=== PATIENT | female | born 1930 | race African-American/Black ===

== ENCOUNTER 2017-11-14 15:14 | Inpatient (IN) | payer MEDICARE ==
[~2017-11-14] VITALS: Ht 162.6 cm; Wt 77.6 kg
[~2017-11-14 15:14] MED LIST: ASPIR 8181 MG PO; BENAZEPRIL HCL10 MG ORAL; FUROSEMIDE40 MG ORAL; HYDROCHLOROTHIA25 MG ORAL; METOPROLOL SUCC25 MG ORAL; PENTOXIFYLLINE400 MG PO; POTASSIUM99 M3 PO; VALIUM2 MG ORAL; ZYLOPRIM300 MG PO
[2017-11-14] MEDS ORDERED: dilTIAZem HCl 25mg/5ml Inj IV ONE (15:45)
[2017-11-14] MEDS ORDERED: Sodium Chloride 500ML 500 ML IV ONE (15:45)
[2017-11-14 16:01] LABS: BASOPHILS % (AUTO) 1.2 % (0.0-2.0); EOSINOPHILS % (AUTO) 1.4 % (0.0-3.0); HEMATOCRIT 49.7 % (37.0-47.0); HEMOGLOBIN 15.2 G/DL (12.0-16.0); LYMPHOCYTES % (AUTO) 34.2 % (20.0-45.0); MEAN CORPUSCULAR VOLUME 86 FL (80-99); MONOCYTES % (AUTO) 7.6 % (1.0-10.0); NEUTROPHILS % (AUTO) 55.6 % (45.0-75.0); PLATELET COUNT 218 K/UL (150-450); RED BLOOD COUNT 5.78 M/UL (4.20-5.40); RED CELL DISTRIBUTION WIDTH 14.8 % (11.6-14.8); WHITE BLOOD COUNT 7.7 K/UL (4.8-10.8)
[2017-11-14 16:07] LABS: INR 1.1 (0.9-1.1)
[2017-11-14 16:09] LABS: ANION GAP 11 mmol/L (5-15); BLOOD UREA NITROGEN 15 mg/dL (7-18); CARBON DIOXIDE 25 MMOL/L (21-32); CHLORIDE 103 MMOL/L (98-107); CREATININE 1.3 MG/DL (0.55-1.30); POTASSIUM 3.4 MMOL/L (3.5-5.1); SODIUM 139 MMOL/L (136-145)
[2017-11-14 16:19] LABS: ALANINE AMINOTRANSFERASE 17 U/L (12-78); ALBUMIN 3.6 G/DL (3.4-5.0); ALBUMIN/GLOBULIN RATIO 0.8 (1.0-2.7); ALKALINE PHOSPHATASE 78 U/L (46-116); ASPARTATE AMINO TRANSFERASE 19 U/L (15-37); BILIRUBIN,TOTAL 0.4 MG/DL (0.2-1.0); CREATINE KINASE 40 U/L (26-308)
[2017-11-14] MEDS ORDERED: Metoprolol 5mg/5ml Inj IVP STA (16:38)
[2017-11-14 16:46] VITALS: BP 103/61
--- NOTE | 2017-11-14 17:11 | Diagnostic Imaging Report ---
EXAM: XR Chest, 1 View CLINICAL HISTORY: CP TECHNIQUE: Frontal view of the chest. COMPARISON: Chest x-ray 11/14/151916 FINDINGS: Lungs: Unremarkable. No consolidation. Pleural space: Unremarkable. No pneumothorax. Heart: Heart size upper limits normal. Mediastinum: Unremarkable. Bones/joints: Degenerative changes of the spine. IMPRESSION: No acute findings.
--- NOTE | 2017-11-14 18:27 | Emergency Room Report ---
History of Present Illness General Chief Complaint: Dizziness Source: Patient Present Illness HPI Patient presents with dizziness for a few days. She feels weak when she stands and that she is about to pass out. She she's never had this problem before. She feels also that her heart is racing. No chest pain. She denies any fevers , chills, nausea, vomiting, diarrhea. She states that she's been able to take her medications as prescribed. She been treated for hypertension. She feels anxious. No headache. No calf pain or edema. No rashes. No NVD, dysuria, joint pain. Allergies: Coded Allergies: ACETAMINOPHEN (Verified Allergy, Mild, 05/13/12) AMINOGLYCOSIDES (Verified Allergy, Mild, 05/13/12) BACITRACIN (Verified Allergy, Mild, 05/13/12) COLISTIN (Verified Allergy, Mild, 05/13/12) DEXAMETHASONE (Verified Allergy, Mild, 05/13/12) GRAMICIDIN D (Verified Allergy, Mild, 05/13/12) HYDROCORTISONE (Verified Allergy, Mild, 05/13/12) MORPHINE (Verified Allergy, Mild, 05/13/12) NEOMYCIN (Verified Allergy, Mild, 05/13/12) POLYMYXIN B (Verified Allergy, Mild, 05/13/12) PREDNISOLONE (Verified Allergy, Mild, 05/13/12) SULFONYLUREAS (Verified Allergy, Mild, 05/13/12) THONZONIUM (Verified Allergy, Mild, 05/13/12) TRIMETHOPRIM (Verified Allergy, Mild, 05/13/12) Patient History Past Medical History: see triage record Past Surgical History: hysterectomy Social History: Denies: smoking, alcohol use Social History Narrative at home Last Menstrual Period: NA Reviewed Nursing Documentation: PMH: Agreed; PSxH: Agreed Nursing Documentation-PMH Past Medical History: No History, Except For Hx Cardiac Problems: Yes Hx Hypertension: Yes Hx Asthma: No - hysterectomy Hx Cancer: No Hx Gastrointestinal Problems: No Hx Neurological Problems: No Review of Systems All Other Systems: negative except mentioned in HPI Physical Exam Vital Signs Date Time Temp Pulse Resp B/P (MAP) Pulse Ox O2 Delivery O2 Flow Rate FiO2 11/14/17 15:19 97.5 171 18 101/68 97 Room Air 97.5 Sp02 EP Interpretation: reviewed, normal General Appearance: well appearing, no apparent distress, GCS 15 Head: normocephalic Eyes: bilateral eye normal inspection, bilateral eye PERRL ENT: moist mucus membranes Neck: supple Respiratory: lungs clear, normal breath sounds Cardiovascular #1: tachycardia, irregularly irregular Cardiovascular #2: 2+ radial (R) Gastrointestinal: normal inspection, normal bowel sounds, non tender, no mass, non-distended Genitourinary: no CVA tenderness Musculoskeletal: back normal, normal range of motion, no calf tenderness, Darnell 's Sign negative Neurologic: alert, oriented x3, grossly normal Psychiatric: anxious Skin: normal inspection, warm/dry Procedures Critical Care Time Critical Care Time Total Critical Care Time: 30 min bedside evaluation and treatment excludes procedures (EKG). Reason for critical care: arrhythmia, NSTEMI, repeated evaluations Possible complications: hypotension, hypertension, NH, shock, arrhythmias, metabolic acidosis, end organ damage, respiratory failure. Interventions: Bolus for hypotension. Repeat evaluations. Treatment for + troponin. Consultation with MDs Course: Patient with a fib and RVR. Order for diltiazem after bolus for hypotension. Repeat EKG after cardiac conversion. Repeat evaluations. Treatment for + troponin with aspirin and metoprolol. Consultation with HMO MD and admitting MD. Consultations: nursing staff, EMS, family, HMO MD, admitting MD Performed by: Dr. Tejeda Tolerated well condition = serious Medical Decision Making Diagnostic Impression: Primary Impression: NSTEMI (non-ST elevated myocardial infarction) Additional Impression: Paroxysmal A-fib ER Course Patient presents with dizziness and atrial fibrillation with rapid ventricular response rate. Differential included includes acute myocardial infarction, electrolyte imbalance, pulmonary embolus, hyperthyroidism amongst others. Patient be evaluated with EKG, chest x-ray and labs. Addition the patient is slightly hypotensive. She'll get a small fluid bolus and then receive diltiazem. Before diltiazem was given the patient converted to normal sinus rhythm. The prior EKG showed some strain. The subsequent EKG is normal the rate of 84 without injury. CBC with elevated H/H and normal WBC. CMP with min hypokalemia. Troponin was minimally elevated. The patient received aspirin and a dose of metoprolol. The patient is improved. Patient felt palpitations but had NSR. Anxiety treated with ativan. Patient needs continued cardiac observation and to see troponins are elevating. She also needs echocardiogram. Discussed with Dr. Vines and decision to not transfer due to cardiac instability. Admit SDU, Dr. Reis. Laboratory Tests Test 11/14/17 15:30 White Blood Count 7.7 K/UL (4.8-10.8) Red Blood Count 5.78 M/UL (4.20-5.40) H Hemoglobin 15.2 G/DL (12.0-16.0) Hematocrit 49.7 % (37.0-47.0) H Mean Corpuscular Volume 86 FL (80-99) Mean Corpuscular Hemoglobin 26.2 PG (27.0-31.0) L Mean Corpuscular Hemoglobin Concent 30.5 G/DL (32.0-36.0) L Red Cell Distribution Width 14.8 % (11.6-14.8) Platelet Count 218 K/UL (150-450) Mean Platelet Volume 11.1 FL (6.5-10.1) H Neutrophils (%) (Auto) 55.6 % (45.0-75.0) Lymphocytes (%) (Auto) 34.2 % (20.0-45.0) Monocytes (%) (Auto) 7.6 % (1.0-10.0) Eosinophils (%) (Auto) 1.4 % (0.0-3.0) Basophils (%) (Auto) 1.2 % (0.0-2.0) Prothrombin Time 11.1 SEC (9.30-11.50) Prothrombin Time INR 1.1 (0.9-1.1) PTT 30 SEC (23-33) Sodium Level 139 MMOL/L (136-145) Potassium Level 3.4 MMOL/L (3.5-5.1) L Chloride Level 103 MMOL/L (98-107) Carbon Dioxide Level 25 MMOL/L (21-32) Anion Gap 11 mmol/L (5-15) Blood Urea Nitrogen 15 mg/dL (7-18) Creatinine 1.3 MG/DL (0.55-1.30) Estimate Glomerular Filtration Rate mL/min (>60) Glucose Level 119 MG/DL (74-106) H Calcium Level 10.0 MG/DL (8.5-10.1) Total Bilirubin 0.4 MG/DL (0.2-1.0) Aspartate Amino Transferase (AST) 19 U/L (15-37) Alanine Aminotransferase (ALT) 17 U/L (12-78) Alkaline Phosphatase 78 U/L (46-116) Total Creatine Kinase 40 U/L (26-308) Troponin I 0.070 ng/mL (0.000-0.056) Pro-B-Type Natriuretic Peptide 220 pg/mL (0-125) H Total Protein 8.0 G/DL (6.4-8.2) Albumin 3.6 G/DL (3.4-5.0) Globulin 4.4 g/dL Albumin/Globulin Ratio 0.8 (1.0-2.7) L EKG Diagnostic Results Rate: tachycardiac Rhythm: other - a fib ST Segments: other Other Impression Repeat EKG NSR, rate 84, normal EKG Rhythm Strip Diag. Results EP Interpretation: yes Rhythm: no PVC's, no ectopy, other - a fib RVR Chest X-Ray Diagnostic Results Chest X-Ray Diagnostic Results : Chest X-Ray Ordered: Yes # of Views/Limited/Complete: 1 View Indication: Other EP Interpretation: Yes Interpretation: no consolidation, no effusion, no pneumothorax Impression: Other Electronically Signed by: Electronically signed by Aaron Tejeda MD Last Vital Signs Date Time Temp Pulse Resp B/P (MAP) Pulse Ox O2 Delivery O2 Flow Rate FiO2 11/15/17 00:00 Room Air 11/15/17 00:00 65 11/15/17 00:00 97.5 18 118/72 (87) 99 97.5 Status: improved Disposition: ADMITTED INPATIENT Condition: Serious Referrals: BYRON MARSH (PCP) Aaron Tejeda M.D. Nov 14, 2017 18:27
[2017-11-14 19:04] LABS: BILIRUBIN, URINE NEGATIVE (NEGATIVE); GLUCOSE, URINE (UA) NEGATIVE (NEGATIVE); KETONES,URINE NEGATIVE (NEGATIVE); LEUKOCYTE ESTERASE ,URINE NEGATIVE (NEGATIVE); NITRITE,URINE NEGATIVE (NEGATIVE); PH,URINE 5 (4.5-8.0); PROTEIN,URINE NEGATIVE (NEGATIVE); UROBILINOGEN,URINE NORMAL MG/DL (0.0-1.0)
[2017-11-14 19:05] LABS: APPEARANCE,URINE CLEAR; COLOR,URINE YELLOW
[2017-11-14] MEDS ORDERED: LORazepam Inj 2mg/ml 1ml IV ONE (20:15)
[2017-11-14 21:00] VITALS: BP 116/79
[2017-11-14] MEDS: Heparin 5000 units/ml inj SUBQ SCH (21:07)
[2017-11-14] MEDS ORDERED: LORazepam 1mg tab ORAL PRN (22:00)
[2017-11-14] MEDS ORDERED: Metoprolol Succinate XL 50mg tab ORAL SCH (22:00)
--- NOTE | 2017-11-14 22:15 | History and Physical Report ---
DATE OF ADMISSION: 11/14/2017 CHIEF COMPLAINT: Hypotension, dizziness, and atrial fibrillation with rapid ventricular response. HISTORY OF PRESENT ILLNESS: The patient is a pleasant female with a history of hypertensive heart disease and gout. She has been having problems with low blood pressure for the last several days. She called her doctor, who recommended that she cut her medications in half and transferred here. She went to [facility] and had her blood pressure checked, it was 60. She repeated it and it was 90. She developed palpitations and continued to feel dizzy, so her family brought her to the emergency room. On evaluation there, the patient's blood pressure was 100/68, but she was in atrial fibrillation with rapid ventricular response. She was given a dose of Cardizem and converted to sinus. She had an elevated troponin and is now admitted for further evaluation and care. She denies any fevers or chills. She has had no chest pain. She believes that her left ankle has been more swollen. PAST MEDICAL HISTORY: As above. PAST SURGICAL HISTORY: Includes hysterectomy. CURRENT MEDICATIONS: Reconciled and reviewed. ALLERGIES: Multiple and include Tylenol, aminoglycosides, colistin, dexamethasone, hydrocortisone, morphine, polymyxin, prednisolone, and sulfonylureas. FAMILY HISTORY: Noncontributory. SOCIAL HISTORY: The patient has a [id number] history of smoking. REVIEW OF SYSTEMS: GENERAL: No fever or chills. Positive dizziness. HEENT: No headaches or visual changes. CARDIOPULMONARY: No chest pain. Positive palpitations. No shortness of breath. GASTROINTESTINAL: No nausea or vomiting. GENITOURINARY: No urgency or frequency. MUSCULOSKELETAL: No joint pain or swelling. NEUROLOGIC: No evidence of seizures. PHYSICAL EXAMINATION: VITAL SIGNS: Temperature 97.5, pulse 90, respirations 18, and blood pressure 124/59. CONSTITUTIONAL: The patient is well developed, in no apparent distress. HEART: Regular rate and rhythm. LUNGS: Clear. ABDOMEN: Soft, nontender, and nondistended. EXTREMITIES: Without clubbing or cyanosis. There is trace edema noted in the left leg. LABORATORY DATA: White count 7, hemoglobin 15, hematocrit 49, and platelets are 218,000. Sodium 139, potassium 3.4, and creatinine was 1.3. Troponin 0.07. Urine was clear. ASSESSMENT: This is a pleasant female admitted with complaints of hypotension likely secondary to medications and mild dehydration. The patient has new onset atrial fibrillation, but is already converted to sinus. She appears mildly dehydrated. PLAN: 1. Monitor on telemetry. 2. Repeat troponin. 3. Antiplatelet therapy with aspirin. 4. Monitor for recurrent atrial fibrillation. 5. Cardiology consultation. 6. We will check an echo and a venous duplex of the legs. 7. Plan of care was discussed at the bedside with the patient. Genaro Reis M.D. DR: RASHID JOB#: [id number] CC:
[2017-11-14] MEDS ORDERED: METOPROLOL SUCC25 MG ORAL (23:53)
[2017-11-14] MEDS ORDERED: POTASSIUM CHLO20 ME2 ORAL (23:55)
[2017-11-15] VITALS: BP 118/72
--- NOTE | 2017-11-15 03:30 | Consultation ---
DATE OF CONSULTATION: 11/14/2017 REASON FOR CONSULTATION: Atrial fibrillation and hypotension. CONSULTING PHYSICIAN: Aaron Leiva M.D. REQUESTING PHYSICIAN: Genaro Reis M.D. HISTORY OF PRESENT ILLNESS: This is an 87-year-old female has a history of hypertension and recently has had decreasing blood pressure readings which she has notified her doctor about and has had her medication regimen decreased slightly over the period of the past few weeks. Today, she felt increasingly weak, dizzy, and lightheaded. Her blood pressure was 90 systolic. She notes that it had been low episodically over the past week, but not ____. She had been putting her head down between her legs when she had these type of symptoms and low blood pressure readings. The patient came to the emergency room where she was noted to have a blood pressure of 100/68 and was in rapid atrial fibrillation. She was a given a dose of Cardizem intravenously and subsequently converted to sinus rhythm. She had abnormal laboratory studies including an elevated troponin level and has been admitted for further management. PAST MEDICAL HISTORY: Hypertension, gout, chronic obstructive pulmonary disease, and prior hysterectomy. She is unaware of any prior history of irregular heartbeats. MEDICATIONS: Reviewed and reconciled. ALLERGIES: Aminoglycosides, colistin, dexamethasone, morphine, sulfonylureas, and acetaminophen. SOCIAL HISTORY: A 50+ pack year smoker. FAMILY HISTORY: Noncontributory. REVIEW OF SYSTEMS: A 10-point review of systems performed. All systems negative other than noted above. PHYSICAL EXAMINATION: VITAL SIGNS: Blood pressure 124/59, pulse 90, respiratory rate 18, and afebrile. GENERAL: Monitor, presently sinus arrhythmia. HEENT: Conjunctiva pink. Sclerae are anicteric. Oropharynx clear. Mucous membranes moist. NECK: Supple. Jugular venous pressure normal. LUNGS: Clear. CARDIAC: Regular rhythm and rate. Normal S1 and S2 with fourth heart sound. ABDOMEN: Soft and nontender. EXTREMITIES: With trace left leg edema. NEUROLOGIC: Nonfocal. LABORATORY DATA: White count 7 and hemoglobin 15. Potassium 3.4 and troponin 0.07. IMPRESSION: 1. Recurring hypotension, likely medication related, aggravated by mild hypovolemia and dehydration. 2. Paroxysmal atrial fibrillation. 3. Hypokalemia. 4. History of hyperuricemia and gout. 5. Acute myocardial ischemia. PLAN: 1. Avoid diuretic therapy. 2. Volume resuscitation. 3. Hold anticoagulation for now. 4. Consider beta-mamie, echocardiogram, and venous duplex study. 5. Antiplatelet therapy. 6. Serial troponin levels. Aaron Leiva M.D. DR: SMITHA JOB#: [id number] CC:
[2017-11-15 04:00] VITALS: BP 115/81
[2017-11-15 06:08] LABS: ALANINE AMINOTRANSFERASE 12 U/L (12-78); ALBUMIN 2.7 G/DL (3.4-5.0); ALBUMIN/GLOBULIN RATIO 0.8 (1.0-2.7); ALKALINE PHOSPHATASE 58 U/L (46-116); ANION GAP 8 mmol/L (5-15); ASPARTATE AMINO TRANSFERASE 16 U/L (15-37); BILIRUBIN,TOTAL 0.4 MG/DL (0.2-1.0); BLOOD UREA NITROGEN 13 mg/dL (7-18); CALCIUM 8.9 MG/DL (8.5-10.1); CARBON DIOXIDE 24 MMOL/L (21-32); CHLORIDE 109 MMOL/L (98-107); CHOLESTEROL 141 MG/DL (< 200); HDL CHOLESTEROL 37 MG/DL (40-60); POTASSIUM 3.8 MMOL/L (3.5-5.1); SODIUM 141 MMOL/L (136-145); TRIGLYCERIDES 116 MG/DL (30-150)
[2017-11-15 08:00] VITALS: BP 135/66
[2017-11-15] MEDS: Aspirin EC 81mg tab ORAL SCH (08:53)
[2017-11-15] MEDS ORDERED: Metoprolol Succinate XL 25mg tab ORAL SCH (09:00)
[2017-11-15] MEDS ORDERED: Benazepril 10mg tab ORAL SCH (09:00)
[2017-11-15] MEDS: Metoprolol Succinate XL 25mg tab ORAL SCH (09:18)
[2017-11-15] MEDS: Heparin 5000 units/ml inj SUBQ SCH ×2 (09:22→21:04)
--- NOTE | 2017-11-15 10:17 | General Progress Note ---
Assessment/Plan Problem List: (1) Hypotension ICD Codes: I95.9 - Hypotension, unspecified SNOMED: 16149089 (2) Dehydration ICD Codes: E86.0 - Dehydration SNOMED: 32786601 (3) Dizziness ICD Codes: R42 - Dizziness and giddiness SNOMED: 318237880, 571019049 (4) NSTEMI (non-ST elevated myocardial infarction) ICD Codes: I21.4 - Non-ST elevation (NSTEMI) myocardial infarction SNOMED: 074878500 (5) Paroxysmal A-fib ICD Codes: I48.0 - Paroxysmal atrial fibrillation SNOMED: 002915934 Status: stable, progressing Assessment/Plan antiplt rx trend troponin b-blockade dc ivf check lipids check echo carotids Subjective ROS Limited/Unobtainable: No Constitutional: Reports: no symptoms HEENT: Reports: no symptoms Cardiovascular: Reports: no symptoms Respiratory: Reports: no symptoms Gastrointestinal/Abdominal: Reports: no symptoms Genitourinary: Reports: no symptoms Neurologic/Psychiatric: Reports: no symptoms Endocrine: Reports: no symptoms Hematologic/Lymphatic: Reports: no symptoms Allergies: Coded Allergies: ACETAMINOPHEN (Verified Allergy, Mild, 05/13/12) AMINOGLYCOSIDES (Verified Allergy, Mild, 05/13/12) BACITRACIN (Verified Allergy, Mild, 05/13/12) COLISTIN (Verified Allergy, Mild, 05/13/12) DEXAMETHASONE (Verified Allergy, Mild, 05/13/12) GRAMICIDIN D (Verified Allergy, Mild, 05/13/12) HYDROCORTISONE (Verified Allergy, Mild, 05/13/12) MORPHINE (Verified Allergy, Mild, 05/13/12) NEOMYCIN (Verified Allergy, Mild, 05/13/12) POLYMYXIN B (Verified Allergy, Mild, 05/13/12) PREDNISOLONE (Verified Allergy, Mild, 05/13/12) SULFONYLUREAS (Verified Allergy, Mild, 05/13/12) THONZONIUM (Verified Allergy, Mild, 05/13/12) TRIMETHOPRIM (Verified Allergy, Mild, 05/13/12) Subjective feels better. no more afib. troponin treding up. cards noted denies dizziness Objective Last 24 Hour Vital Signs Date Time Temp Pulse Resp B/P (MAP) Pulse Ox O2 Delivery O2 Flow Rate FiO2 11/15/17 09:18 72 135/66 11/15/17 08:53 135/66 11/15/17 08:00 97.9 72 20 135/66 (89) 100 97.9 11/15/17 08:00 Room Air 11/15/17 04:00 76 11/15/17 04:00 Room Air 11/15/17 04:00 98.1 78 18 115/81 (92) 99 98.1 11/15/17 00:00 Room Air 11/15/17 00:00 65 11/15/17 00:00 Room Air 11/15/17 00:00 97.5 79 18 118/72 (87) 99 97.5 11/14/17 22:20 72 116/79 11/14/17 21:00 97.7 73 20 116/79 (91) 99 97.7 11/14/17 21:00 Room Air 11/14/17 21:00 74 11/14/17 20:30 97.5 18 124/59 97 Room Air 97.5 11/14/17 18:45 90 124/59 11/14/17 16:46 97.5 18 103/61 97 Room Air 97.5 11/14/17 15:45 88 103/66 11/14/17 15:19 97.5 171 18 101/68 97 Room Air 97.5 Intake and Output 11/14/17 11/15/17 19:00 07:00 Intake Total 0 ml 650 ml Balance 0 ml 650 ml Intake Oral 0 ml IV Total 650 ml # Voids 1 Laboratory Tests 11/14/17 15:30: White Blood Count 7.7, Red Blood Count 5.78H, Hemoglobin 15.2, Hematocrit 49.7H , Mean Corpuscular Volume 86, Mean Corpuscular Hemoglobin 26.2L, Mean Corpuscular Hemoglobin Concent 30.5L, Red Cell Distribution Width 14.8, Platelet Count 218, Mean Platelet Volume 11.1H, Neutrophils (%) (Auto) 55.6, Lymphocytes (%) (Auto) 34.2, Monocytes (%) (Auto) 7.6, Eosinophils (%) (Auto) 1.4, Basophils (%) (Auto) 1.2, Prothrombin Time 11.1, Prothromb Time International Ratio 1.1, Activated Partial Thromboplast Time 30, Sodium Level 139, Potassium Level 3.4L, Chloride Level 103, Carbon Dioxide Level 25, Anion Gap 11, Blood Urea Nitrogen 15, Creatinine 1.3, Estimat Glomerular Filtration Rate , Glucose Level 119H, Calcium Level 10.0, Total Bilirubin 0.4, Aspartate Amino Transf (AST/SGOT) 19, Alanine Aminotransferase (ALT/SGPT) 17, Alkaline Phosphatase 78, Total Creatine Kinase 40, Troponin I 0.070H, Pro-B-Type Natriuretic Peptide 220H, Total Protein 8.0, Albumin 3.6, Globulin 4.4, Albumin/ Globulin Ratio 0.8L 11/14/17 18:55: Urine Color Yellow, Urine Appearance Clear, Urine pH 5, Urine Specific Warner 1.015, Urine Protein Negative, Urine Glucose (UA) Negative, Urine Ketones Negative, Urine Blood Negative, Urine Nitrite Negative, Urine Bilirubin Negative , Urine Urobilinogen Normal, Urine Leukocyte Esterase Negative 11/15/17 03:40: Sodium Level 141, Potassium Level 3.8, Chloride Level 109H, Carbon Dioxide Level 24, Anion Gap 8, Blood Urea Nitrogen 13, Creatinine 1.0, Estimat Glomerular Filtration Rate , Glucose Level 89, Calcium Level 8.9, Total Bilirubin 0.4, Aspartate Amino Transf (AST/SGOT) 16, Alanine Aminotransferase ( ALT/SGPT) 12, Alkaline Phosphatase 58, Troponin I 0.424H, Pro-B-Type Natriuretic Peptide 1069H, Total Protein 6.2L, Albumin 2.7L, Globulin 3.5, Albumin/Globulin Ratio 0.8L, Magnesium Level 1.6L, Triglycerides Level 116, Cholesterol Level 141, LDL Cholesterol 85, HDL Cholesterol 37L, Cholesterol/HDL Ratio 3.8, Thyroid Stimulating Hormone (TSH) 1.484 Height (Feet): 5 Height (Inches): 4.00 Weight (Pounds): 170 General Appearance: WD/WN, alert Neck: supple Cardiovascular: regular rhythm Respiratory/Chest: chest wall non-tender, lungs clear, normal breath sounds Abdomen: normal bowel sounds, non tender, soft, no organomegaly Edema: no edema noted Arm (L), no edema noted Arm (R), no edema noted Leg (L), no edema noted Leg (R), no edema noted Pedal (L), no edema noted Pedal (R), no edema noted Generalized Genaro Reis MD Nov 15, 2017 10:17
[2017-11-15 12:00] VITALS: BP 130/60
--- NOTE | 2017-11-15 13:43 | Cardiology Report ---
APPROVED REPORT EKG Measurement Heart [id number] Normal sinus rhythm Normal ECG
[2017-11-15 20:00] VITALS: BP 148/74
[2017-11-15 23:58] VITALS: BP 129/69
--- NOTE | 2017-11-16 00:45 | Progress Note ---
DATE: 11/15/2017 CARDIOLOGY PROGRESS NOTE SUBJECTIVE: The patient without chest pain or shortness of breath. She notes no more palpitations or dizziness. Her monitored rhythm remains sinus with sinus arrhythmias since admission. OBJECTIVE: VITAL SIGNS: Blood pressure 148/74, pulse 68, respiratory rate 20, afebrile, and room air oxygen saturation is 97%. NECK: Jugular venous pressure normal. LUNGS: Clear. CARDIAC: Regular rhythm and rate. Normal S1 and S2 with a fourth heart sound. ABDOMEN: Soft. EXTREMITIES: No edema. LABORATORY AND DIAGNOSTIC DATA: Sodium 141, potassium 3.8, bicarbonate 24, BUN 13, and creatinine 1.0. Magnesium 1.6. Troponin up to 0.424. Pro-natriuretic peptide up to 1069. Albumin 2.7. Total cholesterol 141 and LDL 85. TSH 1.48. IMPRESSION: 1. Acute myocardial infarction. 2. Paroxysmal atrial fibrillation. 3. Hypokalemia, corrected. 4. Medication associated hypotension, resolved. 5. Hypertensive heart disease. 6. History of gout and hyperuricemia. PLAN: 1. No resumption of thiazide. 2. Titrate beta-mamie. 3. Restart benazepril. 4. No plan for full anticoagulation in this advanced age group with fall risk. 5. Continue anti-platelet therapy. 6. DVT prophylaxis. 7. Discontinue IV fluids. Aaron Leiva M.D. DR: PRAMOD JOB#: [id number] CC:
[2017-11-16 04:00] VITALS: BP 133/76
[2017-11-16 05:55] LABS: BASOPHILS % (AUTO) 0.7 % (0.0-2.0); EOSINOPHILS % (AUTO) 5.5 % (0.0-3.0); HEMATOCRIT 39.1 % (37.0-47.0); HEMOGLOBIN 12.4 G/DL (12.0-16.0); LYMPHOCYTES % (AUTO) 37.3 % (20.0-45.0); MEAN CORPUSCULAR VOLUME 86 FL (80-99); MONOCYTES % (AUTO) 7.7 % (1.0-10.0); NEUTROPHILS % (AUTO) 48.8 % (45.0-75.0); PLATELET COUNT 142 K/UL (150-450); RED BLOOD COUNT 4.55 M/UL (4.20-5.40); RED CELL DISTRIBUTION WIDTH 14.7 % (11.6-14.8); WHITE BLOOD COUNT 4.4 K/UL (4.8-10.8)
[2017-11-16 06:17] LABS: ALANINE AMINOTRANSFERASE 15 U/L (12-78); ALBUMIN 2.6 G/DL (3.4-5.0); ALBUMIN/GLOBULIN RATIO 0.8 (1.0-2.7); ALKALINE PHOSPHATASE 58 U/L (46-116); ANION GAP 6 mmol/L (5-15); ASPARTATE AMINO TRANSFERASE 18 U/L (15-37); BILIRUBIN,TOTAL 0.4 MG/DL (0.2-1.0); BLOOD UREA NITROGEN 8 mg/dL (7-18); CALCIUM 8.9 MG/DL (8.5-10.1); CARBON DIOXIDE 25 MMOL/L (21-32); CHLORIDE 108 MMOL/L (98-107); CREATININE 0.9 MG/DL (0.55-1.30); POTASSIUM 3.6 MMOL/L (3.5-5.1); SODIUM 139 MMOL/L (136-145)
[2017-11-16] MEDS ORDERED: BENAZEPRIL HCL40 MG ORAL (07:57)
[2017-11-16] MEDS ORDERED: METOPROLOL SUCC25 MG ORAL (07:57)
[2017-11-16 08:00] VITALS: BP 137/76
[2017-11-16] MEDS ORDERED: Benazepril 10mg tab ONE ×2 (08:16→08:28)
[2017-11-16] MEDS: Aspirin EC 81mg tab ORAL SCH (08:23)
[2017-11-16] MEDS: Metoprolol Succinate XL 25mg tab ORAL SCH (08:24)
[2017-11-16] MEDS: Heparin 5000 units/ml inj SUBQ SCH (08:26)
[2017-11-16 08:29] VITALS: BP 137/76
--- NOTE | 2017-11-16 21:00 | Progress Note ---
DATE: 11/16/2017 CARDIOLOGY PROGRESS NOTE SUBJECTIVE: The patient remains in sinus rhythm. She has no chest pain. No shortness of breath. OBJECTIVE: VITAL SIGNS: Blood pressure 137/76, pulse 71, respiratory rate 20, and afebrile. NECK: Supple. LUNGS: Clear. CARDIAC: Regular. Normal S1 and S2. ABDOMEN: Soft. EXTREMITIES: No edema. LABORATORY DATA: White count 4.4 and hemoglobin 12.4. Potassium 3.6. Albumin 2.6. Troponin down to 0.116. IMPRESSION: 1. Paroxysmal atrial fibrillation with rapid ventricular response. 2. Hypotension and orthostasis due to medications, now resolved. 3. Acute myocardial infarction, precipitated by rapid ventricular rate and low coronary perfusion, now improved. 4. Moderate protein-calorie malnutrition. 5. History of hypertension. 6. Acute on chronic diastolic congestive heart failure, clinically compensated. RECOMMENDATIONS: 1. Recommend medical therapy in this age group. 2. Avoid diuretics. 3. Avoid tight blood pressure control. 4. Continue beta-mamie and anti-platelet therapy. 5. No plan for anticoagulation due to increased risk to benefit ratio and low likelihood for recurring atrial fibrillation with stable . 6. Blood pressure management. 7. Outpatient evaluation of lipid parameters and assessment for statin therapy to follow. Aaron Leiva M.D. : ROBYN JOB#: [id number] CC:
--- NOTE | 2017-11-18 14:48 | Discharge Summary ---
Discharge Summary Discharge Summary _ DATE OF ADMISSION: 11/14/2017 DATE OF DISCHARGE: 11/16/2017 REASON FOR ADMISSION: 87 years old female with past medical history of hypertension, congestive heart failure, presented with complaints of dizziness and weakness for few days . Patient reported she was about to pass out . She never had this sensation before. She also reported that her heart was racing. She denied chest pain or shortness of breath . She denied fever or chills. She denied nausea ,vomiting ,diarrhea. Vital signs revealed severe tachycardia with heart rate of 171. Blood rpessure low -101/68. EKG shows atrial fibrillation with rapid ventricular response. Troponin elevated 0.07 . Pro BNP 220 . No leukocytosis , stable hemoglobin and hematocrit . Chest x-ray revealed no acute cardiopulmonary pathology . Potassium 3.4. BUN 15, creatinine 1.3. Urinalysis revealed no evidence of UTI. Patient received small fluid bolus and then received Cardizem. Patient converted to normal sinus rhythm. Subsequent EKG showed normal sinus rhythm with heart rate of 84. Patient admitted for further management with diagnoses of atrial fibrillation with rapid ventricular response, paroxysmal/new onset of atrial fibrillation, elevated troponin, possible NSTEMI, hypotension, dehydration. CONSULTANTS: senior tax manager Dr. Leiva [facility] COURSE: Patient admitted to telemetry floor. Patient was followed up with serial troponin. Cardiology consult was requested. Patient started on antiplatelet therapy with aspirin. Patient was closely monitored for recurrence of atrial fibrillation. Yarding Engineer seen and evaluated patient. Per senior tax manager recurrent hypotension was likely medication related and aggravated by mild hypovolemia and dehydration. Potassium was replaced. Fluid resuscitation provided. Beta blockage provided. Serial troponin with mild elevation, likely acute myocardial infarction, precipitated by rapid ventricular rate and low coronary perfusion. Yarding Engineer recommended avoid diuretic therapy . Per cardio, no plan for full anticoagulation in this advanced age group with fall risk. Antiplatelet therapy with aspirin was continued. Lipid panel stable. DVT prophylaxis provided. As blood pressure stabilized, beta mamie was titrated w and low-dose of AVA inhibitor was added to antihypertensive regimen. However , no resumption of diuretic. Consider echocardiogram as outpatient. IV fluids were discontinued. Supportive care provided. [facility]al [facility]. Patient was working with physial and occupational therapists. Fall precautions were maintained. FINAL DIAGNOSES: Acute myocardial infarction ( precipitated by rapid ventricular rate and low coronary perfusion) Paroxysmal atrial fibrillation with rapid ventricular response, resolved Hypotension, associated with medication , ( and aggravated by dehydration and hypovolemia), resolved Hypertensive heart disease Hypokalemia . resolved Acute on chronic diastolic heart failure, clinically compensated Dehydration Moderate protein calorie malnutrition History of gout and hyperuricemia DISCHARGE MEDICATIONS: See Medication Reconciliation list. DISCHARGE INSTRUCTIONS: Patient was discharged home with home health services. Follow up with primary care provider in one week. I have been assigned to dictate discharge summary for this account. I was not involved in the patient's management. Jade Landrum NP Nov 18, 2017 14:48
== END 2017-11-16 14:55 | disposition home health service (06) | DRG 280 ==
LOC: EMR 15:45 → EDBEDREQ 16:00 → 2W 17:16 → EDBEDREQ 18:25
DX: I21.9 Acute myocardial infarction, unspecified (principal); I50.33 Acute on chronic diastolic (congestive) heart failure; E44.0 Moderate protein-calorie malnutrition; E86.0 Dehydration; I48.0 Paroxysmal atrial fibrillation; I95.2 Hypotension due to drugs; E86.1 Hypovolemia; I11.0 Hypertensive heart disease with heart failure; E87.6 Hypokalemia; M10.9 Gout, unspecified; J44.9 Chronic obstructive pulmonary disease, unspecified; Z88.6 Allergy status to analgesic agent; Z88.2 Allergy status to sulfonamides; Z88.8 Allergy status to other drugs, medicaments and biological substances; F17.200 Nicotine dependence, unspecified, uncomplicated
CPT/HCPCS: 36415; 71045; 80053; 80061; 81003; 82550; 83735; 83880; 84443; 84484; 85025; 85610; 85730; 93005; 96374; 96375; 99291; J8499

== ENCOUNTER 2017-11-22 14:11 | Emergency (ER) | payer MEDICARE ==
[~2017-11-22] VITALS: Ht 167.6 cm; Wt 72.6 kg
[~2017-11-22 14:11] MED LIST changes: +BENAZEPRIL HCL40 MG ORAL; +POTASSIUM CHLO20 ME2 ORAL
--- NOTE | 2017-11-22 14:24 | Emergency Room Report ---
History of Present Illness General Chief Complaint: Headache Source: Patient, Medical Record Present Illness HPI Patient presents with dizziness. She was unsteady on her feet when family was taking her blood pressure. She was recently admitted for a non-STEMI and discharged on Thursday. She's not been taking a lot of fluids I and her appetite has been poor. Also she's been anxious at home. She denies any chest pain, palpitations, nausea, vomiting, diarrhea, constipation, dysuria, hematuria , abdominal pain, joint pain, or overall weakness. She also denies fevers or chills. There's no ringing in her ears. She was taken off of hydrochlorothiazide and potassium and other blood pressure medications were doubled up when she was in the hospital. She has had presentations with dizziness associated with hypotension in the past. Also diagnosed with dehydration. Allergies: Coded Allergies: ACETAMINOPHEN (Verified Allergy, Mild, 05/13/12) AMINOGLYCOSIDES (Verified Allergy, Mild, 05/13/12) BACITRACIN (Verified Allergy, Mild, 05/13/12) COLISTIN (Verified Allergy, Mild, 05/13/12) DEXAMETHASONE (Verified Allergy, Mild, 05/13/12) GRAMICIDIN D (Verified Allergy, Mild, 05/13/12) HYDROCORTISONE (Verified Allergy, Mild, 05/13/12) MORPHINE (Verified Allergy, Mild, 05/13/12) NEOMYCIN (Verified Allergy, Mild, 05/13/12) POLYMYXIN B (Verified Allergy, Mild, 05/13/12) PREDNISOLONE (Verified Allergy, Mild, 05/13/12) SULFONYLUREAS (Verified Allergy, Mild, 05/13/12) THONZONIUM (Verified Allergy, Mild, 05/13/12) TRIMETHOPRIM (Verified Allergy, Mild, 05/13/12) Patient History Past Medical History: see triage record Social History: Denies: smoking, alcohol use, drug use Social History Narrative with family Reviewed Nursing Documentation: PMH: Agreed; PSxH: Agreed Nursing Documentation-PMH Past Medical History: No History, Except For Hx Cardiac Problems: Yes Hx Hypertension: Yes Hx Cancer: No Hx Gastrointestinal Problems: Yes - Abdominal pain Hx Neurological Problems: Yes Hx Dizziness: Yes Review of Systems All Other Systems: negative except mentioned in HPI Physical Exam Vital Signs Date Time Temp Pulse Resp B/P (MAP) Pulse Ox O2 Delivery O2 Flow Rate FiO2 11/22/17 14:16 97.8 71 18 162/67 100 Room Air 97.9 Sp02 EP Interpretation: reviewed, normal General Appearance: well appearing, no apparent distress, GCS 15 Head: normocephalic, atraumatic Eyes: bilateral eye normal inspection, bilateral eye PERRL, bilateral eye EOMI - no nystagmus ENT: moist mucus membranes - plaque Neck: supple Respiratory: lungs clear, normal breath sounds Cardiovascular #1: regular rate, rhythm Cardiovascular #2: 2+ radial (R) Gastrointestinal: normal inspection, normal bowel sounds, non tender, no mass, non-distended Musculoskeletal: back normal, gait/station normal, normal range of motion Neurologic: alert, oriented x3, loading checker III-XII nml as tested, motor strength/tone normal, DTRs symmetric, sensory intact, normal gait, speech normal, no Babinski Psychiatric: anxious Skin: normal inspection, warm/dry, other - Hyperpigmented neck Medical Decision Making Diagnostic Impression: Primary Impression: Dizziness Additional Impression: Dehydration ER Course Patient presents with dizziness. DDx; dehydration, cerebellar ischemia, vertigo , medication reaction, continued myocardial issues, electrolyte abnormalities, anxiety amongst others. Evaluation with EKG, CXR and labs. Non-focal neurologic exam precludes CT of head. Patient will have orthostatic VS. Treatment with IV hydration and ativan. EKG without injury - some bradycardia, but not to point where dizziness would be expected. CXR normal. Labs with normal CBC (high normal H/H), ESR, CMP, troponin. UA clear. Patient improved with IV hydration and Ativan. Ambulates without difficulty. Still feels some strange sensation in head, but improved. Still cannot exclude cerebellar ischemia, but normal neurologic exam makes less likely. Also could be medication reaction. Discussed need for evaluation by PMD and increased fluid intake. No medical emergency at this time. Patient stable for outpatient observation and treatment. Laboratory Tests Test 11/22/17 14:19 11/22/17 14:50 11/22/17 16:30 White Blood Count 6.2 K/UL (4.8-10.8) Red Blood Count 4.84 M/UL (4.20-5.40) Hemoglobin 12.9 G/DL (12.0-16.0) Hematocrit 41.2 % (37.0-47.0) Mean Corpuscular Volume 85 FL (80-99) Mean Corpuscular Hemoglobin 26.6 PG (27.0-31.0) L Mean Corpuscular Hemoglobin Concent 31.3 G/DL (32.0-36.0) L Red Cell Distribution Width 15.1 % (11.6-14.8) H Platelet Count 164 K/UL (150-450) Mean Platelet Volume 11.6 FL (6.5-10.1) H Neutrophils (%) (Auto) 59.4 % (45.0-75.0) Lymphocytes (%) (Auto) 27.4 % (20.0-45.0) Monocytes (%) (Auto) 8.4 % (1.0-10.0) Eosinophils (%) (Auto) 2.5 % (0.0-3.0) Basophils (%) (Auto) 2.4 % (0.0-2.0) H Erythrocyte Sedimentation Rate 15 MM/HR (0-30) Prothrombin Time 13.7 SEC (9.30-11.50) H Prothrombin Time INR 1.3 (0.9-1.1) H PTT 33 SEC (23-33) Sodium Level 136 MMOL/L (136-145) Potassium Level 4.1 MMOL/L (3.5-5.1) Chloride Level 101 MMOL/L (98-107) Carbon Dioxide Level 25 MMOL/L (21-32) Anion Gap 10 mmol/L (5-15) Blood Urea Nitrogen 9 mg/dL (7-18) Creatinine 0.8 MG/DL (0.55-1.30) Estimate Glomerular Filtration Rate mL/min (>60) Glucose Level 93 MG/DL (74-106) Calcium Level 9.1 MG/DL (8.5-10.1) Total Bilirubin 0.4 MG/DL (0.2-1.0) Aspartate Amino Transferase (AST) 22 U/L (15-37) Alanine Aminotransferase (ALT) 23 U/L (12-78) Alkaline Phosphatase 70 U/L (46-116) Total Creatine Kinase 46 U/L (26-308) Troponin I 0.012 ng/mL (0.000-0.056) Pro-B-Type Natriuretic Peptide 569 pg/mL (0-125) H Total Protein 6.7 G/DL (6.4-8.2) Albumin 3.3 G/DL (3.4-5.0) L Globulin 3.4 g/dL Albumin/Globulin Ratio 1.0 (1.0-2.7) Thyroid Stimulating Hormone (TSH) 2.314 uiU/mL (0.358-3.740) Urine Color Pale yellow Urine Appearance Clear Urine pH 6 (4.5-8.0) Urine Specific [place] 1.010 (1.005-1.035) Urine Protein Negative (NEGATIVE) Urine Glucose (UA) Negative (NEGATIVE) Urine Ketones Negative (NEGATIVE) Urine Blood Negative (NEGATIVE) Urine Nitrite Negative (NEGATIVE) Urine Bilirubin Negative (NEGATIVE) Urine Urobilinogen Normal MG/DL (0.0-1.0) Urine Leukocyte Esterase Negative (NEGATIVE) EKG Diagnostic Results Rate: bradycardiac Rhythm: NSR ST Segments: no acute changes Rhythm Strip Diag. Results EP Interpretation: yes Rhythm: NSR, no PVC's, no ectopy Chest X-Ray Diagnostic Results Chest X-Ray Diagnostic Results : Chest X-Ray Ordered: Yes # of Views/Limited/Complete: 1 View Indication: Other EP Interpretation: Yes Interpretation: no consolidation, no effusion, no pneumothorax Impression: No acute disease Electronically Signed by: Electronically signed by Aaron Tejeda MD Last Vital Signs Date Time Temp Pulse Resp B/P (MAP) Pulse Ox O2 Delivery O2 Flow Rate FiO2 11/22/17 17:38 97.8 62 16 146/63 99 Room Air 97.8 Status: improved Disposition: HOME, SELF-CARE Condition: Improved Scripts Blood Pressure Test Kit-Medium (BLOOD PRESSURE CUFF MONITOR) 1 Each Kit EACH NEEDED, #1 Prov: Aaron Tejeda M.D. 11/22/17 Lorazepam* (ATIVAN*) 0.5 Mg Tablet 0.5 MG ORAL THREE TIMES A DAY PRN for For Anxiety, #10 TAB Prov: Aaron Tejeda M.D. 11/22/17 Aaron Tejeda M.D. Nov 22, 2017 14:24
[2017-11-22 14:30] VITALS: BP_SYST 161; BP_SYST 162; BP_SYST 67; BP_DIAS 65; BP_DIAS 74
[2017-11-22] MEDS ORDERED: LORazepam Inj 2mg/ml 1ml IM ONE (14:30)
[2017-11-22 15:10] LABS: BASOPHILS % (AUTO) 2.4 % (0.0-2.0); EOSINOPHILS % (AUTO) 2.5 % (0.0-3.0); HEMATOCRIT 41.2 % (37.0-47.0); HEMOGLOBIN 12.9 G/DL (12.0-16.0); LYMPHOCYTES % (AUTO) 27.4 % (20.0-45.0); MEAN CORPUSCULAR VOLUME 85 FL (80-99); MONOCYTES % (AUTO) 8.4 % (1.0-10.0); NEUTROPHILS % (AUTO) 59.4 % (45.0-75.0); PLATELET COUNT 164 K/UL (150-450); RED BLOOD COUNT 4.84 M/UL (4.20-5.40); RED CELL DISTRIBUTION WIDTH 15.1 % (11.6-14.8); WHITE BLOOD COUNT 6.2 K/UL (4.8-10.8)
[2017-11-22 15:25] LABS: INR 1.3 (0.9-1.1)
[2017-11-22 15:36] LABS: ANION GAP 10 mmol/L (5-15); BLOOD UREA NITROGEN 9 mg/dL (7-18); CALCIUM 9.1 MG/DL (8.5-10.1); CARBON DIOXIDE 25 MMOL/L (21-32); CHLORIDE 101 MMOL/L (98-107); CREATININE 0.8 MG/DL (0.55-1.30); POTASSIUM 4.1 MMOL/L (3.5-5.1); SODIUM 136 MMOL/L (136-145)
[2017-11-22 15:51] LABS: ALANINE AMINOTRANSFERASE 23 U/L (12-78); ALBUMIN 3.3 G/DL (3.4-5.0); ALKALINE PHOSPHATASE 70 U/L (46-116); ASPARTATE AMINO TRANSFERASE 22 U/L (15-37); BILIRUBIN,TOTAL 0.4 MG/DL (0.2-1.0); CREATINE KINASE 46 U/L (26-308)
[2017-11-22 16:45] LABS: APPEARANCE,URINE CLEAR; BILIRUBIN, URINE NEGATIVE (NEGATIVE); COLOR,URINE PALE YELLOW; GLUCOSE, URINE (UA) NEGATIVE (NEGATIVE); KETONES,URINE NEGATIVE (NEGATIVE); LEUKOCYTE ESTERASE ,URINE NEGATIVE (NEGATIVE); NITRITE,URINE NEGATIVE (NEGATIVE); PH,URINE 6 (4.5-8.0); PROTEIN,URINE NEGATIVE (NEGATIVE); UROBILINOGEN,URINE NORMAL MG/DL (0.0-1.0)
[2017-11-22] MEDS ORDERED: ATIVAN0.5 MG ORAL (17:19)
[2017-11-22] MEDS ORDERED: BLOOD PRESSURE MC (17:19)
[2017-11-22 17:38] VITALS: BP 146/63
--- NOTE | 2017-11-23 08:49 | Diagnostic Imaging Report ---
Indication: Chest pain and dizziness Technique: One view of the chest Comparison: 11/14/2017 Findings: The lungs and pleural spaces are clear. The heart size is normal. The aorta is tortuous ectatic and calcified. No significant interim change Impression: No acute process
--- NOTE | 2017-11-25 19:54 | Cardiology Report ---
APPROVED REPORT EKG Measurement Heart [id number] Sinus bradycardia Otherwise normal ECG
== END 2017-11-22 17:50 | disposition home or self-care (01) ==
LOC: EMR 14:53
DX: R42 Dizziness and giddiness (principal); E86.0 Dehydration; I21.4 Non-ST elevation (NSTEMI) myocardial infarction; I10 Essential (primary) hypertension; Z88.5 Allergy status to narcotic agent; Z88.6 Allergy status to analgesic agent; Z88.8 Allergy status to other drugs, medicaments and biological substances
CPT/HCPCS: 36415; 71045; 80053; 81003; 82550; 83880; 84443; 84484; 85025; 85610; 85651; 85730; 93005; 96372; 99283

== ENCOUNTER 2017-12-05 18:10 | Emergency (ER) | payer MEDICARE ==
[~2017-12-05] VITALS: Ht 162.6 cm; Wt 72.6 kg
[~2017-12-05 18:10] MED LIST changes: +ATIVAN0.5 MG ORAL; +BLOOD PRESSURE MC
[2017-12-05 18:16] VITALS: BP 160/64
[2017-12-05] MEDS ORDERED: Sodium Chloride 500ML 500 ML IV ONE (18:25)
[2017-12-05 18:52] LABS: HEMATOCRIT 44.8 % (37.0-47.0); HEMOGLOBIN 14.4 G/DL (12.0-16.0); LYMPHOCYTES % (AUTO) 25.1 % (20.0-45.0); MEAN CORPUSCULAR VOLUME 85 FL (80-99); MONOCYTES % (AUTO) 8.7 % (1.0-10.0); NEUTROPHILS % (AUTO) 61.2 % (45.0-75.0); PLATELET COUNT 176 K/UL (150-450); RED BLOOD COUNT 5.25 M/UL (4.20-5.40); WHITE BLOOD COUNT 7.1 K/UL (4.8-10.8)
[2017-12-05 18:58] LABS: APPEARANCE,URINE SLIGHTLY CLOUDY; BILIRUBIN, URINE NEGATIVE (NEGATIVE); COLOR,URINE PALE YELLOW; GLUCOSE, URINE (UA) NEGATIVE (NEGATIVE); KETONES,URINE 2+ (NEGATIVE); LEUKOCYTE ESTERASE ,URINE NEGATIVE (NEGATIVE); NITRITE,URINE NEGATIVE (NEGATIVE); PH,URINE 6 (4.5-8.0); PROTEIN,URINE NEGATIVE (NEGATIVE); UROBILINOGEN,URINE NORMAL MG/DL (0.0-1.0)
--- NOTE | 2017-12-05 19:06 | Diagnostic Imaging Report ---
EXAM: XR Chest, 1 View CLINICAL HISTORY: Chest pain TECHNIQUE: Frontal view of the chest. COMPARISON: Chest x-ray dated 11/22/17 FINDINGS: Lungs: Unremarkable. The lungs appear clear. No confluent pulmonary opacities. Pleural space: Unremarkable. The costophrenic angles are sharp. No visible pneumothorax. Heart: Unremarkable. No cardiomegaly. Mediastinum: Unremarkable. Bones/joints: Mild degenerative changes throughout the visualized spine and shoulder joints. Vasculature: Atherosclerotic calcifications are noted within the aortic arch. Tubes, lines and devices: EKG leads overlie the thorax. IMPRESSION: No acute findings.
--- NOTE | 2017-12-05 19:23 | Diagnostic Imaging Report ---
EXAM: CT Head Without Intravenous Contrast CLINICAL HISTORY: DIZZY TECHNIQUE: Axial computed tomography images of the head/brain without intravenous contrast. CTDI is 70.53 mGy and DLP is 1333 mGy-cm. One or more of the following dose reduction techniques were used: automated exposure control, adjustment of the mA and/or kV according to patient size, use of iterative reconstruction technique. COMPARISON: CT head dated 11/14/15 FINDINGS: Brain: Mild generalized parenchymal volume loss, likely age-related. Scattered periventricular and subcortical white matter hypodensities. No evidence of acute intracranial hemorrhage. No mass effect or midline shift. Ventricles: Unremarkable. No ventriculomegaly. Bones/joints: Unremarkable. No acute fracture. Soft tissues: Unremarkable. Sinuses: Right maxillary sinus mucosal opacification. Remaining visualized paranasal sinuses are clear. Mastoid air cells: Unremarkable as visualized. No mastoid effusion. IMPRESSION: 1. No acute intracranial findings. 2. Right maxillary sinusitis. 3. Scattered periventricular and subcortical white matter hypodensities likely related to chronic small vessel disease changes. 4. Mild generalized cerebral parenchymal volume loss, likely age- related.
[2017-12-05] MEDS ORDERED: BENAZEPRIL HCL10 MG ORAL (19:35)
[2017-12-05] MEDS ORDERED: HYDROCHLOROTH12.5 M2 ORAL (19:35)
[2017-12-05 19:38] LABS: ANION GAP 11 mmol/L (5-15); BLOOD UREA NITROGEN 17 mg/dL (7-18); CALCIUM 9.4 MG/DL (8.5-10.1); CARBON DIOXIDE 25 MMOL/L (21-32); CHLORIDE 91 MMOL/L (98-107); CREATININE 1.1 MG/DL (0.55-1.30); POTASSIUM 3.6 MMOL/L (3.5-5.1); SODIUM 127 MMOL/L (136-145)
[2017-12-05 19:43] VITALS: BP 153/62
[2017-12-05] MEDS ORDERED: cefTRIAXone 1 GM in NS 55 ML IVPB ONE (19:45)
[2017-12-05 19:51] LABS: ALANINE AMINOTRANSFERASE 20 U/L (12-78); ALBUMIN 3.4 G/DL (3.4-5.0); ALBUMIN/GLOBULIN RATIO 0.9 (1.0-2.7); ALKALINE PHOSPHATASE 72 U/L (46-116); ASPARTATE AMINO TRANSFERASE 34 U/L (15-37); BILIRUBIN,TOTAL 0.6 MG/DL (0.2-1.0); CKMB 0.7 NG/ML (0.0-3.6); CREATINE KINASE 86 U/L (26-308)
--- NOTE | 2017-12-05 19:55 | Emergency Room Report ---
History of Present Illness General Chief Complaint: Dizziness Source: Patient, Family Member Present Illness HPI Patient presents with complaints of increased generalized weakness she has been feeling more lightheaded and dizzy as well Denies any fevers she has been urinating more than usual Denies any abdominal pain or flank pain denies any focal weakness Denies any calf swelling or pain Denies any lapse of consciousness Allergies: Coded Allergies: ACETAMINOPHEN (Verified Allergy, Mild, 05/13/12) AMINOGLYCOSIDES (Verified Allergy, Mild, 05/13/12) BACITRACIN (Verified Allergy, Mild, 05/13/12) COLISTIN (Verified Allergy, Mild, 05/13/12) DEXAMETHASONE (Verified Allergy, Mild, 05/13/12) GRAMICIDIN D (Verified Allergy, Mild, 05/13/12) HYDROCORTISONE (Verified Allergy, Mild, 05/13/12) MORPHINE (Verified Allergy, Mild, 05/13/12) NEOMYCIN (Verified Allergy, Mild, 05/13/12) POLYMYXIN B (Verified Allergy, Mild, 05/13/12) PREDNISOLONE (Verified Allergy, Mild, 05/13/12) SULFONYLUREAS (Verified Allergy, Mild, 05/13/12) THONZONIUM (Verified Allergy, Mild, 05/13/12) TRIMETHOPRIM (Verified Allergy, Mild, 05/13/12) Patient History Past Medical History: see triage record Pertinent Family History: none Last Menstrual Period: NA Reviewed Nursing Documentation: PMH: Agreed; PSxH: Agreed Nursing Documentation-PMH Hx Cardiac Problems: Yes Hx Hypertension: Yes Hx Cancer: No Hx Gastrointestinal Problems: Yes - Abdominal pain Hx Neurological Problems: Yes Hx Dizziness: Yes Review of Systems All Other Systems: negative except mentioned in HPI Physical Exam Vital Signs Date Time Temp Pulse Resp B/P (MAP) Pulse Ox O2 Delivery O2 Flow Rate FiO2 12/05/17 18:15 97.8 70 20 176/81 95 Room Air 97.9 Sp02 EP Interpretation: reviewed, normal General Appearance: well appearing, no apparent distress Head: normocephalic, atraumatic Eyes: bilateral eye PERRL, bilateral eye EOMI ENT: hearing grossly normal, normal pharynx, TMs + canals normal, uvula midline Neck: full range of motion, supple, no meningismus, no bony tend Respiratory: lungs clear, normal breath sounds, no rhonchi, no respiratory distress, no retraction, no accessory muscle use Cardiovascular #1: normal peripheral pulses, regular rate, rhythm, no edema, no gallop, no JVD, no murmur Gastrointestinal: normal bowel sounds, non tender, soft, no mass, no organomegaly, non-distended, no guarding, no hernia, no pulsatile mass, no rebound Genitourinary: no CVA tenderness Musculoskeletal: normal inspection Neurologic: oriented x3, responsive, organic section technical lead III-XII nml as tested, motor strength/ tone normal, sensory intact Psychiatric: mood/affect normal Skin: normal color, no rash, warm/dry, palpation normal Lymphatic: normal inspection, no adenopathy Medical Decision Making Diagnostic Impression: Primary Impression: UTI (urinary tract infection) Additional Impressions: Dehydration Dizziness ER Course Patient is a fairly complex patient with multiple differential to consideration including but not limited to cardiac cardiopulmonary and vascular emergencies Patient's urine sample does show evidence of UTI Patient's sodium is also low at 127 Patient at this time provided with IV antibiotics requires further inpatient care Secondary to insurance purposes patient will be transferred for continuity of care Labs Test 12/05/17 18:30 White Blood Count 7.1 K/UL (4.8-10.8) Red Blood Count 5.25 M/UL (4.20-5.40) Hemoglobin 14.4 G/DL (12.0-16.0) Hematocrit 44.8 % (37.0-47.0) Mean Corpuscular Volume 85 FL (80-99) Mean Corpuscular Hemoglobin 27.4 PG (27.0-31.0) Mean Corpuscular Hemoglobin Concent 32.1 G/DL (32.0-36.0) Red Cell Distribution Width 15.0 % (11.6-14.8) Platelet Count 176 K/UL (150-450) Mean Platelet Volume 10.4 FL (6.5-10.1) Neutrophils (%) (Auto) 61.2 % (45.0-75.0) Lymphocytes (%) (Auto) 25.1 % (20.0-45.0) Monocytes (%) (Auto) 8.7 % (1.0-10.0) Eosinophils (%) (Auto) 2.0 % (0.0-3.0) Basophils (%) (Auto) 3.0 % (0.0-2.0) Urine Color Pale yellow Urine Appearance Slightly cloudy Urine pH 6 (4.5-8.0) Urine Specific [place] 1.010 (1.005-1.035) Urine Protein Negative (NEGATIVE) Urine Glucose (UA) Negative (NEGATIVE) Urine Ketones 2+ (NEGATIVE) Urine Blood Negative (NEGATIVE) Urine Nitrite Negative (NEGATIVE) Urine Bilirubin Negative (NEGATIVE) Urine Urobilinogen Normal MG/DL (0.0-1.0) Urine Leukocyte Esterase Negative (NEGATIVE) Urine RBC 2-4 /HPF (0 - 2) Urine WBC 5-10 /HPF (0 - 2) Urine Squamous Epithelial Cells Many /LPF (NONE/OCC) Urine Bacteria Many /HPF (NONE) Sodium Level 127 MMOL/L (136-145) Potassium Level 3.6 MMOL/L (3.5-5.1) Chloride Level 91 MMOL/L (98-107) Carbon Dioxide Level 25 MMOL/L (21-32) Anion Gap 11 mmol/L (5-15) Blood Urea Nitrogen 17 mg/dL (7-18) Creatinine 1.1 MG/DL (0.55-1.30) Estimat Glomerular Filtration Rate mL/min (>60) Glucose Level 89 MG/DL (74-106) Calcium Level 9.4 MG/DL (8.5-10.1) Total Bilirubin 0.6 MG/DL (0.2-1.0) Aspartate Amino Transf (AST/SGOT) 34 U/L (15-37) Alanine Aminotransferase (ALT/SGPT) 20 U/L (12-78) Alkaline Phosphatase 72 U/L (46-116) Total Creatine Kinase 86 U/L (26-308) Creatine Kinase MB 0.7 NG/ML (0.0-3.6) Creatine Kinase MB Relative Index 0.8 Troponin I 0.000 ng/mL (0.000-0.056) Total Protein 7.3 G/DL (6.4-8.2) Albumin 3.4 G/DL (3.4-5.0) Globulin 3.9 g/dL Albumin/Globulin Ratio 0.9 (1.0-2.7) EKG Diagnostic Results Rate: normal Rhythm: NSR ST Segments: no acute changes Rhythm Strip Diag. Results EP Interpretation: yes Rate: 77 Rhythm: NSR, no PVC's, no ectopy Chest X-Ray Diagnostic Results Chest X-Ray Diagnostic Results : Chest X-Ray Ordered: Yes # of Views/Limited/Complete: 1 View Indication: Chest Pain EP Interpretation: Yes Interpretation: no consolidation, no effusion, no pneumothorax Impression: Other - Mild elevation left hemidiaphragm Electronically Signed by: Bryan Bill DO CT/MRI/US Diagnostic Results CT/MRI/US Diagnostic Results : Impression CT head :IMPRESSION: 1. No acute intracranial findings. 2. Right maxillarysinusitis. 3. Scattered periventricular and subcortical white matter hypodensities likelyrelated to chronic small vessel disease changes. 4. Mild generalized cerebral parenchymal volume loss, likelyage-related. Last Vital Signs Date Time Temp Pulse Resp B/P (MAP) Pulse Ox O2 Delivery O2 Flow Rate FiO2 12/05/17 19:43 98.6 76 17 153/62 97 Room Air 98.6 Status: improved Disposition: [facility]FER [facility] Condition: Serious Referrals: BYRON MARSH (PCP) Bryan Bill DO Dec 05, 2017 19:55
[2017-12-05 22:30] VITALS: BP 156/68
== END 2017-12-05 22:25 | disposition short-term general hospital (02) ==
LOC: EMR 18:35
DX: N39.0 Urinary tract infection, site not specified (principal); J32.0 Chronic maxillary sinusitis; E86.0 Dehydration; R42 Dizziness and giddiness; R07.9 Chest pain, unspecified; I10 Essential (primary) hypertension
CPT/HCPCS: 36415; 70450; 71045; 80053; 81003; 82550; 82553; 84484; 85025; 87086; 93005; 96365; 99285; J0696; J7040